=== PATIENT | female | born 1935 | race Caucasian/White ===

== ENCOUNTER 2016-08-02 17:17 | Inpatient (IN) | payer OTHER ==
--- NOTE | ~2016-08-02 | IDS ---
Interim Discharge Summary [facility] [address] [place]. [address] NAME: ERICK SANDERS : 37 STATUS : ADM IN PAT#: [id number] AGE: 80 ADM/REG DATE : 08/02/16 MR#: [id number] REPORT SERV DATE: 08/07/16 DICTATED BY: GAURANG RODRIGUEZ DATE: 08/07/16 REPORT STATUS : Draft TRANSCRIBED BY: MODL DATE: 08/07/16 ADMISSION DATE: 08/02/2016 DISCHARGE DATE: REASON FOR ADMISSION: This is a 80-year-old female who [facility] with her when she got up in to sit in the wheelchair, lost her balance and fell on the floor, suffering injury to the right hip. In the emergency room, x-ray of the hip revealed a right intertrochanteric femoral fracture and Hospitalist Service was asked to admit. INTERIM DISCHARGE DIAGNOSES: 1. Right hip fracture, status post open reduction internal fixation. 2. Chronic kidney disease stage 3. 3. Diabetes type 2. 4. Hypertension. 5. Coronary artery disease. 6. Iron deficiency/acute blood loss anemia. HOSPITAL COURSE: Right hip fracture. The patient admitted for right hip fracture, was seen by Dr. Yan, who performed an open reduction and internal fixation of the right intertrochanteric femur fracture with a trochanteric nail on 08/04/2016. The patient would tolerate the procedure well. She has started the patient on Coumadin for DVT prophylaxis. INR is now 1.7. Postoperatively, she did have some acute blood loss anemia with her hemoglobin dropping to 7.3. She received 1 unit of packed red cells and her hemoglobin was 8.4 today. Additionally, she was found to be iron deficient and has been given IV iron. CURRENT MEDICATIONS: 1. Allopurinol 100 mg p.o. daily. 2. Carvedilol 12.5 mg p.o. b.i.d. 3. Colace 100 mg p.o. b.i.d. 4. Pepcid 20 mg p.o. b.i.d. 5. Ferrous sulfate 300 mg p.o. daily. 6. Gabapentin 300 mg p.o. b.i.d. 7. Insulin NovoLog 5 units before meals t.i.d. 8. Sliding scale insulin level 1 before meals and at bedtime Accu-Cheks. 9. Levemir 50 units subcu q.h.s. 10.Synthroid 125 mcg p.o. daily. 11.Loratadine 10 mg p.o. daily. 12.Lovastatin 20 mg p.o. daily. 13.Multivitamin one tablet daily. 14.Protonix 40 mg p.o. daily. 15.Ferrous gluconate IV. 16.Spironolactone 25 mg p.o. daily. 17.Warfarin 2.5 mg p.o. Sunday, Sunday, Sunday, , and Sunday and 5 mg Sunday and Sunday. 18.Hydralazine 50 mg p.o. b.i.d. Interim Discharge Summary [address] [address] NAME: ERICK SANDERS : 37 STATUS : ADM IN [facility]#: [id number] AGE: 80 ADM/REG DATE : 08/02/16 MR#: [id number] REPORT SERV DATE: 08/07/16 DICTATED BY: GAURANG RODRIGUEZ DATE: 08/07/16 REPORT STATUS : Draft TRANSCRIBED BY: LANI DATE: 08/07/16 CURRENT PLAN: The patient is currently doing well. She has had a bowel movement after surgery, eating well, is awaiting arrangement for custodial rehab and prefers a location in the [place], [place] area. The patient is stable to discharge whenever the bed is arranged and all paperwork for transfer have already been filled out. The patient's care to be assumed by Dr. Jordan Dean. CHARLIE/MARTITAL Gaurang Rodriguez APN / [id number] CC: Luis Abel M.D. Britney Dhaliwal M.D. Jesse Yan M.D. Prashant Dean, DO
--- NOTE | ~2016-08-02 | DS ---
Discharge Summary [facility] [address] [place]. [address] NAME: ERICK SANDERS : 37 STATUS : DIS IN PAT#: [id number] AGE: 80 ADM/REG DATE : 08/02/16 MR#: [id number] REPORT SERV DATE: 08/08/16 DICTATED BY: ROQUE ANDERSEN DATE: 08/08/16 REPORT STATUS : Draft TRANSCRIBED BY: MODL DATE: 08/08/16 ADMISSION DATE: 08/02/2016 DISCHARGE DATE: 08/08/2016 See prior discharge summary done just yesterday. ADDENDUM: The patient had a mild hypoglycemic episode of 57 this morning, got half amp of D50, now totally back to her baseline. GCS of 15. She needs to be, as any diabetic patient would need, on insulin one-half to two-thirds of her total daily insulin requirements as long-acting and then one-half to one-third of her daily insulin requirements as short- acting. As a result, we will reduce her Levemir from 50 to 30 units subcu at bedtime and ensure she gets a nighttime low caloric intake snack prior to going to sleep and maintain her NovoLog 5 units subcu t.i.d. before meals with sliding scale coverage. The patient is amenable. She should use incentive spirometry 20 times an hour to reduce the risk of atelectasis as she is still on oxygen. All questions were answered. It took over 30 minutes to do. LUIS/LANI Roque Andersen DO / [id number] CC: DO Britney Thomason M.D.
--- NOTE | ~2016-08-02 | OP ---
Record Of Operation [facility] [address] [place]. [address] NAME: ERICK SANDERS : 37 STATUS : ADM IN PAT#: [id number] AGE: 80 ADM/REG DATE : 08/02/16 MR#: [id number] REPORT SERV DATE: 08/04/16 DICTATED BY: JESSE YAN DATE: 08/04/16 REPORT STATUS : Draft TRANSCRIBED BY: MODL DATE: 08/04/16 DATE OF PROCEDURE: 08/04/2016 PREOPERATIVE DIAGNOSIS: Right intertrochanteric femur fracture POSTOPERATIVE DIAGNOSIS: Right intertrochanteric femur fracture. PROCEDURE: Open reduction and internal fixation of the right intertrochanteric femur fracture with trochanteric nail. SURGEON: Jesse Yan M.D. SPRAYER HAND: Iris Ulrich. ANESTHESIA: General with LMA. ESTIMATED BLOOD LOSS: 100 mL. COMPLICATIONS: None. DRAINS: None. IMPLANTS: Jaya Gamma 3 nail. INDICATIONS FOR SURGERY: Ms Sanders is a 80-year-old female, who sustained the above- mentioned fracture in a fall. It was recommended that she undergo open reduction and internal fixation. Risks of the procedure as detailed in the orthopedic consult, and operative consent were discussed prior to proceeding. She fully understood and has requested to proceed. DESCRIPTION OF PROCEDURE: The patient was brought to the operating room and after adequate induction of anesthesia was positioned on the [place] fracture table in the supine position. The nonoperative hip was placed in flexion and abduction to facilitate radiography. The operative leg was placed in gentle skin traction. The fracture was then reduced to a position of anatomic reduction. Appropriate reduction was confirmed using biplanar fluoroscopic guidance. The hip was then prepped and draped in the usual sterile fashion. A 3-4cm incision was made proximal to the tip of the greater trochanter using a #10 blade. The subcutaneous tissues were dissected sharply, electrocautery was used as needed to maintain hemostasis. The fascia deejay was divided in line with the incision. The guidewire for the Gamma III nail system was then placed in the tip of the greater trochanter, in line with the intramedullary canal of the femur. The appropriate guidewire placement was confirmed using biplanar fluoroscopy. The guidewire was then over reamed with a 15.5 mm starting reamer. Once the starting hole had been completed, a short Gamma nail was manually impacted over the guidewire to the appropriate depth. Appropriate nail placement was confirmed using biplanar Record Of Operation [facility] [id number] [facility] [place]. [address] NAME: ERICK SANDERS : 37 STATUS : ADM IN PAT#: [id number] AGE: 80 ADM/REG DATE : 08/02/16 MR#: [id number] REPORT SERV DATE: 08/04/16 DICTATED BY: JESSE YAN DATE: 08/04/16 REPORT STATUS : Draft TRANSCRIBED BY: MODLashanda DATE: 08/04/16 fluoroscopy. The proximal compression screw guides were then placed through a stab incision in the lateral aspect of the femur. A guide pin was placed in approximately the center position of the femoral head using biplanar fluoroscopic guidance. The guide pin was overreamed with the compression screw reamer and the depth measured for the compression screw. The compression screw was then placed to within 5mm of the subchondral bony plate of the femoral head. The proximal set screw was then placed in dynamic fashion. Attention was then turned to the distal locking screw. The screw was placed through a stab wound on the lateral aspect of the femur using the appropriate guides and fluoroscopic guidance. Once the screw had been fully tightened the guides were removed. Final fluoroscopic images were then obtained and saved in both planes. The wounds were then copiously irrigated with normal saline. The fascia deejay was closed with interrupted #1 Vicryl suture in [id number] fashion, the subcutaneous tissues were approximated with interrupted 2-0 Vicryl suture and the skin stapled. A sterile dressing was applied and the patient was awakened and taken to the Recovery Room in stable condition. POSTOP PLAN: The patient is to be mobilized weightbearing as tolerated on the operative lower extremity. The patient will be on Coumadin and mechanical DVT prophylaxis. ARTURO/LANI Jesse Yan M.D. / [id number] CC: Sofía Dorado M.D.
--- NOTE | ~2016-08-02 | CN ---
Consultation Report [facility] [address] [place]. [address] NAME: ERICK SANDERS : 37 STATUS : ADM IN PAT#: [id number] AGE: 80 ADM/REG DATE : 08/02/16 MR#: [id number] REPORT SERV DATE: 08/04/16 DICTATED BY: JESSE YAN DATE: 08/04/16 REPORT STATUS : Draft TRANSCRIBED BY: MODL DATE: 08/04/16 DATE OF CONSULTATION: 08/03/2016 CHIEF COMPLAINT: Right hip pain. HISTORY OF PRESENT ILLNESS: Ms. Sanders is a 80-year-old female who fell landing on her right side. She had immediate onset of severe right hip pain and was unable to ambulate. She was evaluated at [facility] Emergency [facility] and noted to have a right intertrochanteric femur fracture. I have now been asked to see her for evaluation and treatment. On questioning, she complains of only right hip and thigh pain. She denies any mental status changes or loss of consciousness witnessed at the time of the fall. This is an apparent isolated injury other than an elbow abrasion. On physical examination, she is awake, alert, and oriented. She has no cervical tenderness. There is no evidence of bony injury to either upper extremity or left lower extremity. With regard to her right lower extremity, it is shortened and significantly externally rotated. She is non-tolerant to any attempted active or passive right hip range of motion. There was a moderate amount of trochanteric tenderness. She has no tenderness in the midthigh distally. She has weakly present, but palpable pedal pulses and normal sciatic nerve function on the right. DIAGNOSTIC STUDIES: X-rays of her right hip show a displaced right intertrochanteric femur fracture. IMPRESSION: Displaced right intertrochanteric femur fracture. I have discussed treatment options with Ms. Sanders and her family with recommendation for open reduction and internal fixation using a trochanteric nail. Risks of the procedure were discussed including infection, neurovascular damage, DVT, PE, blood loss requiring transfusion, nonunion, malunion, loss of fixation, possible future need for removal of hardware, anesthetic complications and others. She has a good understanding and has requested to proceed with surgical scheduling. ARTURO/LANI Jesse Yan M.D. / [id number] CC: Consultation Report [facility] [address] [place]. [address] NAME: ERICK SANDERS : 37 STATUS : ADM IN PAT#: [id number] AGE: 80 ADM/REG DATE : 08/02/16 MR#: [id number] REPORT SERV DATE: 08/04/16 DICTATED BY: JESSE YAN DATE: 08/04/16 REPORT STATUS : Draft TRANSCRIBED BY: MODLashanda DATE: 08/04/16 Sofía Dorado M.D.
--- NOTE | ~2016-08-02 | HP ---
History And Physical [facility] [address] [place]. [address] NAME: ERICK SANDERS : 37 STATUS : ADM IN PAT#: [id number] AGE: 80 ADM/REG DATE : 08/02/16 MR#: [id number] REPORT SERV DATE: 08/02/16 DICTATED BY: TOREY ROSE DATE: 08/02/16 REPORT STATUS : Draft TRANSCRIBED BY: LANI DATE: 08/02/16 DATE OF ADMISSION: 08/02/2016 CHIEF COMPLAINT: Fall. HISTORY OF PRESENT ILLNESS: The patient is a 80-year-old white female, apparently was in the waiting room of [facility] where her was undergoing surgery. The patient got up, was about to sit in the wheelchair, and as she turned she lost her balance and fell to the floor suffering injury to the right hip. She immediately had pain. She denied any nausea or vomiting. She denied any chest pain, shortness of breath. She has not had any fever or chills. She has not felt bad in any other way, and she has been in her usual state of health. She is fairly mobile using a cane, and she has not had any other problems. When she was brought to the emergency room after her fall, an x-ray of the hip revealed a right intertrochanteric femoral fracture and Medicine Service was asked to admit the patient for further treatment and evaluation. REVIEW OF SYSTEMS: Otherwise negative. PAST MEDICAL HISTORY: Significant for chronic kidney disease stage 3 with a baseline creatinine of around 1.3; coronary artery disease, status post CABG; aortic valve replacement; iron deficiency anemia; hypothyroidism; type 2 diabetes mellitus; atrial fibrillation; and eczema. PAST SURGICAL HISTORY: Significant for CABG, aortic valve replacement with a porcine valve, hysterectomy, and a right knee surgery. ALLERGIES: NO KNOWN DRUG ALLERGIES. HOME MEDICATIONS: Will be reviewed when available from the pharmacy. SOCIAL HISTORY: She is , has two children. Five grand children. Lives in [place], [place]. No use of alcohol, tobacco, or illicit substances. Fairly mobile using a cane. FAMILY HISTORY: Mother with kidney disease and hypertension. Strong family history of heart disease. PHYSICAL EXAMINATION: GENERAL: White female, lying on a gurney, appears to be in no obvious respiratory distress. She is awake, alert. She is oriented. VITAL SIGNS: Blood pressure 161/65, temperature is 97.8, pulse is 69, and saturation of 96% on room air. HEENT: Head is normocephalic, atraumatic. Pupils are equal, round, and reactive to light. Extraocular muscles are intact. Sclerae anicteric. Conjunctivae normal. Oropharynx without lesion. Tongue protrusion midline. Uvula midline. NECK: Supple. No jugular venous distention. No carotid bruits or thyromegaly is History And Physical [address] [address] NAME: ERICK SANDERS : 37 STATUS : ADM IN [facility]#: [id number] AGE: 80 ADM/REG DATE : 08/02/16 MR#: [id number] REPORT SERV DATE: 08/02/16 DICTATED BY: TOREY ROSE DATE: 08/02/16 REPORT STATUS : Draft TRANSCRIBED BY: LANI DATE: 08/02/16 appreciated. No lymphadenopathy in the neck is palpable. HEART: Irregularly irregular rhythm. There is a 3/6 soft systolic murmur, best heard in second intercostal space, left parasternal border. PMI just inside the anterior axillary line. LUNGS: Clear to auscultation both anteriorly and in axillary areas. Posterior exam not possible because of patient's recumbent state. ABDOMEN: Obese, soft, nontender, good bowel sounds. No rebound or guarding. No organomegaly. EXTREMITIES: Without cyanosis, clubbing, or edema. Right extremity held in slight flexion of the knee and external rotation. Pain with palpation to the right but the left lower extremity seems to be grossly intact. NEUROLOGIC: Not attempted because of patient's acuity. However, she is able to move both upper arms. Deep tendon reflexes are normal. Strength is equal and symmetrical in the upper arms and cranial nerves are within normal limits as well. There are no unusual facial droops noted as well. LABORATORY DATA: White count is 7.3, hemoglobin of 11.4, hematocrit of 36, and platelet count is 151,000. MCV is slightly low at 78.8. PT/INR and PTT are still pending and electrolytes are still pending. X-ray of the right hip showing intertrochanteric fracture of the right hip. EKG has not been done in the emergency room yet. IMPRESSION: 1. Right intertrochanteric fracture. 2. 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 3. Chronic atrial fibrillation on Coumadin. 4. Hypertension. 5. Type 2 diabetes mellitus. 6. Chronic kidney disease stage 3 with a creatinine of 1.3 to 1.5. 7. Hypothyroidism. 8. Anemia iron deficiency. 9. Hyperlipidemia. 10.Eczema. PLAN: The patient will be admitted. Ortho consultation will be obtained. Two-dimensional echocardiogram will be done as last echo was done in 2013. Hold Coumadin. We will obtain routine labs again in the morning with a PT/INR as well. Home medications will be addressed when available from the pharmacy. The patient remains a full code. The patient's primary care physician is Dr. Britney Dhaliwal. TANGELA/LANI Torey Rose M.D. / [id number] History And Physical [address] [address] NAME: ERICK SANDERS : 37 STATUS : ADM IN [facility]#: [id number] AGE: 80 ADM/REG DATE : 08/02/16 MR#: [id number] REPORT SERV DATE: 08/02/16 DICTATED BY: TOREY ROSE DATE: 08/02/16 REPORT STATUS : Draft TRANSCRIBED BY: MODL DATE: 08/02/16 CC: Sofía Fitzpatrick M.D.
[2016-08-02 16:57] LABS: BASOPHILS 0.3 %; BASOPHILS ABSOLUTE 0.02 10/3/uL (0.0-0.16); EOSINOPHILS 4.4 %; EOSINOPHILS ABSOLUTE 0.32 10/3/uL (0.0-0.53); ER CBC TAT 0 Hrs 10 Mins; HEMOGLOBIN 11.4 g/dL (12.0-16.0); IMMATURE GRANULOCYTES 0.3 %; IMMATURE GRANULOCYTES ABSOLUTE 0.02 10/3/uL (0.0-0.11); LYMPHOCYTES 11.4 %; LYMPHOCYTES ABSOLUTE 0.83 10/3/uL (0.67-4.30); MEAN CORPUS HGB CONC 31.7 g/dL (32.0-36.0); MEAN CORPUSCULAR HEMOGLOB 24.9 pg (26.0-34.0); MEAN CORPUSCULAR VOLUME 78.8 fL (80-100); MONOCYTES 5.1 %; MONOCYTES ABSOLUTE 0.37 10/3/uL (0.21-1.20); NEUTROPHILS 78.5 %; NEUTROPHILS ABSOLUTE 5.71 10/3/uL (2.02-8.40); PLATELET COUNT 151 10/3/uL (150-400); RBC DISTRIBUTION WIDTH 16.8 % (12.0-16.0); RED CELL COUNT 4.57 10/6/uL (4.0-5.6); WHITE BLOOD CELLS 7.3 10/3/uL (4.5-10.5)
[2016-08-02 16:58] LABS: MANUAL DIFF NO %
[2016-08-02 17:04] LABS: BUN (BLOOD UREA NITROGEN) 31 MG/DL (6-23); CHLORIDE, SERUM 103 MMOL/L (96-112); CREATININE 1.72 MG/DL (0.55-1.02); GFR AFRICAN AMERICAN 32 ML/MIN (>=60); GFR NON AFRICAN AMERICAN 28 ML/MIN (>=60); POTASSIUM, SERUM 3.7 MMOL/L (3.5-5.3); SODIUM, SERUM 139 MMOL/L (135-148)
[2016-08-02 17:05] LABS: CO2 (CARBON DIOXIDE) 30 MMOL/L (24-34); GLUCOSE, SERUM 147 MG/DL (60-99)
[2016-08-02 17:15] LABS: INTERNATIONAL NORMAL RATI 2.6 UNITS (-); PARTIAL THROMBO TIME 49.6 SEC (22.5-37.2); PROTIME (NOT ORD) 27.3 SEC (12.0-14.5)
[~2016-08-02 17:17] MED LIST: APRES50 PO; ASAB PO; BETAMETH DIP0.05 % EX; C25 PO; C5 PO; CARD60 PO; COREG6 PO; CYANO1000T PO; DURICEF PO; ENDOCET1 TAB PO; KDUR20 PO; L40 PO; LEVAQUIN750 MG PO; LEVEMFLXPN SC; MEVACOR PO; NEUR300 PO; PREDNISONE PO; PRILO PO; SYN125 PO; Z100 PO; Z5 PO; ZOFRAN4 PO; ZYRTEC ALLGY10 MG PO
[2016-08-02] MEDS ORDERED: LEVEMIR SC (17:38)
[2016-08-02] MEDS ORDERED: BENTYL10 PO (17:39)
[2016-08-02] MEDS ORDERED: KDUR20 PO (17:39)
[2016-08-02] MEDS ORDERED: CARD30 PO (17:40)
[2016-08-02] MEDS ORDERED: ULTRAM50 PO (17:40)
[2016-08-02] MEDS ORDERED: Z100 PO (17:40)
[2016-08-02] MEDS ORDERED: LEVOTHROID125 MCG PO (17:40)
[2016-08-02] MEDS ORDERED: MYCOLOG II CREA15 GM TOP (17:41)
[2016-08-02] MEDS ORDERED: NEUR300 PO (17:41)
[2016-08-02] MEDS ORDERED: PRILO PO (17:41)
[2016-08-02] MEDS ORDERED: SPIRO25 PO (17:41)
[2016-08-02] MEDS ORDERED: POLY IRON PO (17:42)
[2016-08-02] MEDS ORDERED: L40 PO (17:42)
[2016-08-02] MEDS ORDERED: COREG6 PO (17:42)
[2016-08-02] MEDS ORDERED: APRES50 PO (17:43)
[2016-08-02] MEDS ORDERED: MEVACOR PO (17:43)
[2016-08-02] MEDS ORDERED: ZYRTEC ALLGY10 MG PO (17:43)
[2016-08-02] MEDS ORDERED: C5 PO (17:44)
[2016-08-02] MEDS ORDERED: C25 PO (17:45)
[2016-08-03 06:23] LABS: BASOPHILS 0.1 %; BASOPHILS ABSOLUTE 0.01 10/3/uL (0.0-0.16); EOSINOPHILS 0.8 %; EOSINOPHILS ABSOLUTE 0.07 10/3/uL (0.0-0.53); HEMATOCRIT 31.5 % (36.0-48.0); IMMATURE GRANULOCYTES 0.5 %; IMMATURE GRANULOCYTES ABSOLUTE 0.04 10/3/uL (0.0-0.11); LYMPHOCYTES 8.6 %; LYMPHOCYTES ABSOLUTE 0.71 10/3/uL (0.67-4.30); MANUAL DIFF NO %; MEAN CORPUS HGB CONC 31.7 g/dL (32.0-36.0); MEAN CORPUSCULAR HEMOGLOB 24.9 pg (26.0-34.0); MEAN CORPUSCULAR VOLUME 78.6 fL (80-100); MONOCYTES 8.1 %; MONOCYTES ABSOLUTE 0.67 10/3/uL (0.21-1.20); NEUTROPHILS 81.9 %; NEUTROPHILS ABSOLUTE 6.78 10/3/uL (2.02-8.40); PLATELET COUNT 158 10/3/uL (150-400); RBC DISTRIBUTION WIDTH 16.7 % (12.0-16.0); RED CELL COUNT 4.01 10/6/uL (4.0-5.6); WHITE BLOOD CELLS 8.3 10/3/uL (4.5-10.5)
[2016-08-03 06:27] LABS: INTERNATIONAL NORMAL RATI 2.7 UNITS (-); PROTIME (NOT ORD) 28.1 SEC (12.0-14.5)
[2016-08-03 06:28] LABS: PARTIAL THROMBO TIME 66.6 SEC (22.5-37.2)
[2016-08-03 06:42] LABS: ALBUMIN 3.6 G/DL (3.5-5.0); BUN (BLOOD UREA NITROGEN) 30 MG/DL (6-23); CALCIUM, SERUM 9.7 MG/DL (8.5-10.4); CHLORIDE, SERUM 102 MMOL/L (96-112); CO2 (CARBON DIOXIDE) 27 MMOL/L (24-34); GFR AFRICAN AMERICAN 33 ML/MIN (>=60); GFR NON AFRICAN AMERICAN 28 ML/MIN (>=60); GLUCOSE, SERUM 196 MG/DL (60-99); PHOSPHORUS, SERUM 3.3 MG/DL (2.5-4.5); POTASSIUM, SERUM 3.9 MMOL/L (3.5-5.3); SODIUM, SERUM 140 MMOL/L (135-148)
[2016-08-03 06:45] LABS: PLATELET ESTIMATE ADQ (ADEQUATE)
[2016-08-03 06:46] LABS: OVALOCYTES 1+ (3-10/OIF) (0-2/OIF); POLYCHROMASIA 1+ (2-5/OIF) (0-1/OIF)
[2016-08-03 13:07] LABS: INTERNATIONAL NORMAL RATI 2.7 UNITS (-); PARTIAL THROMBO TIME 71.1 SEC (22.5-37.2); PROTIME (NOT ORD) 28.8 SEC (12.0-14.5)
[2016-08-03 16:12] LABS: % IRON SAT 12 % (20-50); CHOL/HDL RATIO(NOT ORDER) 4.7 (0-5); CHOLESTEROL 149 MG/DL (< 200); FERRITIN 25 NG/ML (8-252); HDL CHOLESTEROL 32 MG/DL (> 49); IRON BINDING CAPACITY 315 MCG/DL (225-410); IRON, SERUM 38 MCG/DL (35-150); LDL CHOLESTEROL 85 MG/DL (< 130); NON-HDL CHOLESTEROL 117 MG/DL (< 160); TRIGLYCERIDE 161 MG/DL (< 150)
[2016-08-04 06:18] LABS: BASOPHILS 0.1 %; BASOPHILS ABSOLUTE 0.01 10/3/uL (0.0-0.16); EOSINOPHILS 1.4 %; EOSINOPHILS ABSOLUTE 0.14 10/3/uL (0.0-0.53); HEMATOCRIT 30.9 % (36.0-48.0); HEMOGLOBIN 9.8 g/dL (12.0-16.0); IMMATURE GRANULOCYTES 0.3 %; IMMATURE GRANULOCYTES ABSOLUTE 0.03 10/3/uL (0.0-0.11); LYMPHOCYTES ABSOLUTE 0.77 10/3/uL (0.67-4.30); MEAN CORPUS HGB CONC 31.7 g/dL (32.0-36.0); MEAN CORPUSCULAR HEMOGLOB 25.1 pg (26.0-34.0); MONOCYTES 8.6 %; MONOCYTES ABSOLUTE 0.83 10/3/uL (0.21-1.20); NEUTROPHILS 81.6 %; NEUTROPHILS ABSOLUTE 7.89 10/3/uL (2.02-8.40); PLATELET COUNT 139 10/3/uL (150-400); RBC DISTRIBUTION WIDTH 17.1 % (12.0-16.0); RED CELL COUNT 3.91 10/6/uL (4.0-5.6); WHITE BLOOD CELLS 9.7 10/3/uL (4.5-10.5)
[2016-08-04 06:20] LABS: MANUAL DIFF NO %
[2016-08-04 06:34] LABS: BUN (BLOOD UREA NITROGEN) 33 MG/DL (6-23); CALCIUM, SERUM 9.9 MG/DL (8.5-10.4); CHLORIDE, SERUM 104 MMOL/L (96-112); CO2 (CARBON DIOXIDE) 26 MMOL/L (24-34); CREATININE 1.71 MG/DL (0.55-1.02); GFR AFRICAN AMERICAN 33 ML/MIN (>=60); GFR NON AFRICAN AMERICAN 28 ML/MIN (>=60); POTASSIUM, SERUM 4.1 MMOL/L (3.5-5.3); SODIUM, SERUM 138 MMOL/L (135-148)
[2016-08-04 06:35] LABS: GLUCOSE, SERUM 129 MG/DL (60-99); ULTRASENSITIVE TSH 0.486 MCIU/ML (0.358-3.740)
[2016-08-04 06:48] LABS: INTERNATIONAL NORMAL RATI 1.4 UNITS (-)
[2016-08-04 06:49] LABS: PARTIAL THROMBO TIME 40.1 SEC (22.5-37.2); PROTIME (NOT ORD) 16.8 SEC (12.0-14.5)
[2016-08-04 07:03] LABS: ANISOCYTOSIS 1+ (5-10/OIF) (0-5/OIF); MICROCYTES 1+ (5-10/OIF) (0-5/OIF); PLATELET ESTIMATE SLT DEC (ADEQUATE); POIKILOCYTOSIS 1+ (5-10/OIF) (0-5/OIF); SCHISTOCYTES OCC (0-2/OIF)
[2016-08-05 07:28] LABS: HEMOGLOBIN 8.5 g/dL (12.0-16.0)
[2016-08-05 07:29] LABS: HEMATOCRIT 26.7 % (36.0-48.0)
[2016-08-05 07:35] LABS: INTERNATIONAL NORMAL RATI 1.4 UNITS (-); PROTIME (NOT ORD) 17.1 SEC (12.0-14.5)
[2016-08-05 07:41] LABS: BUN (BLOOD UREA NITROGEN) 39 MG/DL (6-23); CALCIUM, SERUM 9.8 MG/DL (8.5-10.4); CHLORIDE, SERUM 99 MMOL/L (96-112); CO2 (CARBON DIOXIDE) 27 MMOL/L (24-34); CREATININE 1.94 MG/DL (0.55-1.02); GFR AFRICAN AMERICAN 28 ML/MIN (>=60); GFR NON AFRICAN AMERICAN 24 ML/MIN (>=60); GLUCOSE, SERUM 169 MG/DL (60-99); POTASSIUM, SERUM 3.8 MMOL/L (3.5-5.3); SODIUM, SERUM 133 MMOL/L (135-148)
[2016-08-06 06:59] LABS: INTERNATIONAL NORMAL RATI 1.3 UNITS (-); PROTIME (NOT ORD) 16.3 SEC (12.0-14.5)
[2016-08-06 07:00] LABS: BASOPHILS 0.1 %; BASOPHILS ABSOLUTE 0.01 10/3/uL (0.0-0.16); EOSINOPHILS 0 %; HEMATOCRIT 23.2 % (36.0-48.0); HEMOGLOBIN 7.3 g/dL (12.0-16.0); IMMATURE GRANULOCYTES 0.7 %; IMMATURE GRANULOCYTES ABSOLUTE 0.06 10/3/uL (0.0-0.11); LYMPHOCYTES 5.9 %; LYMPHOCYTES ABSOLUTE 0.49 10/3/uL (0.67-4.30); MEAN CORPUS HGB CONC 31.5 g/dL (32.0-36.0); MEAN CORPUSCULAR HEMOGLOB 24.6 pg (26.0-34.0); MEAN CORPUSCULAR VOLUME 78.1 fL (80-100); MONOCYTES ABSOLUTE 0.67 10/3/uL (0.21-1.20); NEUTROPHILS 85.3 %; NEUTROPHILS ABSOLUTE 7.13 10/3/uL (2.02-8.40); PLATELET COUNT 115 10/3/uL (150-400); RBC DISTRIBUTION WIDTH 16.7 % (12.0-16.0); RED CELL COUNT 2.97 10/6/uL (4.0-5.6); WHITE BLOOD CELLS 8.4 10/3/uL (4.5-10.5)
[2016-08-06 07:01] LABS: MANUAL DIFF NO %
[2016-08-06 07:39] LABS: HYPOCHROMIA 1+ (3-10/OIF) (0-2/OIF); PLATELET ESTIMATE SLT DEC (ADEQUATE); POIKILOCYTOSIS 1+ (5-10/OIF) (0-5/OIF); SCHISTOCYTES OCC (0-2/OIF)
[2016-08-07 06:08] LABS: INTERNATIONAL NORMAL RATI 1.7 UNITS (-)
[2016-08-07 06:13] LABS: PROTIME (NOT ORD) 20.1 SEC (12.0-14.5)
[2016-08-07 06:38] LABS: HEMOGLOBIN 8.4 g/dL (12.0-16.0)
[2016-08-07 06:39] LABS: HEMATOCRIT 25.6 % (36.0-48.0)
[2016-08-07 08:33] LABS: BUN (BLOOD UREA NITROGEN) 55 MG/DL (6-23); CALCIUM, SERUM 10.4 MG/DL (8.5-10.4); CHLORIDE, SERUM 104 MMOL/L (96-112); CO2 (CARBON DIOXIDE) 24 MMOL/L (24-34); CREATININE 1.71 MG/DL (0.55-1.02); GFR AFRICAN AMERICAN 33 ML/MIN (>=60); GFR NON AFRICAN AMERICAN 28 ML/MIN (>=60); GLUCOSE, SERUM 104 MG/DL (60-99); POTASSIUM, SERUM 3.8 MMOL/L (3.5-5.3); SODIUM, SERUM 137 MMOL/L (135-148)
[2016-08-08 05:18] LABS: PROTIME (NOT ORD) 22.6 SEC (12.0-14.5)
== END 2016-08-08 17:59 | DRG 481 ==
LOC: ER 17:17 → 1SO 17:29
PROVIDERS: Hospitalist; Internal Medicine; Nurse Practitioner Acute Care; Specialist
PROC: 0QS604Z Reposition Right Upper Femur with Internal Fixation Device, Open Approach (ICD-10-PCS; principal; 2016-08-04 08:45)
PROC: 30233N1 Transfusion of Nonautologous Red Blood Cells into Peripheral Vein, Percutaneous Approach (ICD-10-PCS; 2016-08-06)
DX: S72.141A Displaced intertrochanteric fracture of right femur, initial encounter for closed fracture (principal); D62 Acute posthemorrhagic anemia; E11.22 Type 2 diabetes mellitus with diabetic chronic kidney disease; E11.649 Type 2 diabetes mellitus with hypoglycemia without coma; I12.9 Hypertensive chronic kidney disease with stage 1 through stage 4 chronic kidney disease, or unspecified chronic kidney disease; N18.3 Chronic kidney disease, stage 3 (moderate); I25.10 Atherosclerotic heart disease of native coronary artery without angina pectoris; E78.5 Hyperlipidemia, unspecified; L30.9 Dermatitis, unspecified; E03.9 Hypothyroidism, unspecified; I48.2 Chronic atrial fibrillation; E66.9 Obesity, unspecified; Z68.32 Body mass index [BMI] 32.0-32.9, adult; K21.9 Gastro-esophageal reflux disease without esophagitis; W18.30XA Fall on same level, unspecified, initial encounter; Z79.01 Long term (current) use of anticoagulants; Z79.4 Long term (current) use of insulin; Z79.899 Other long term (current) drug therapy; Z95.1 Presence of aortocoronary bypass graft; Z95.2 Presence of prosthetic heart valve
CPT/HCPCS: 36415; 71010; 73502-RT; 80048; 80061; 80069; 82728; 82962; 83540; 83550; 83735; 84443; 85014; 85018; 85025; 85610; 85730; 86850; 86900; 86901; 86920; 93005; 96374; 96375; 96376; 97110-GP; 97116-GP; 97162-GP; 97166-GO; 97530-GP; 97535-GO; 99285; A9270-GY; C1713; C8929; J0690; J1170; J2250; J2270; J2370; J2405; J2916; J3010; J3430; P9016; Q9957